=== PATIENT | female | born 1985 | race Caucasian/White ===

== ENCOUNTER 2022-05-17 11:49 | Observation (INO) ==
[2022-05-17] MEDS ORDERED: SODIUM CHLORIDE 0.9% 1,000 ML IV STA (12:46)
[2022-05-17] MEDS ORDERED: metroNIDAZOLE INJ 500 MG/100 ML PREMIX IV ONE (13:39)
[2022-05-17] MEDS ORDERED: LEVOFLOXACIN INJ 500 MG/100 ML PREMIX IV ONE (13:39)
[2022-05-17 13:59] LABS: Basophils # 0.1 10*3/uL (0.0-0.2); Basophils % 0.4 % (0.0-0.8); Eosinophils # 0.2 10*3/uL (0.0-0.87); Eosinophils % 1.8 % (0.00-10.9); Hematocrit 33.6 VOL% (35.7-47.0); Hemoglobin 11.3 GM/DL (12.0-16.0); Immature Granulocytes % 0.4 %; Immature Granulocytes Absolute 0.05 #; Lymphocytes # 2.7 10*3/uL (1.4-4.0); Lymphocytes % 21.1 % (21.3-54.2); Mean Corpuscular HGB Conc 33.6 GM/DL (32-36); Mean Corpuscular Volume 85.3 FL (87-102); Mean Platelet Volume 9.3 FL (9.6-12.0); Monocytes # 1.3 10*3/uL (0.11-0.8); Monocytes % 10.2 % (1.7-12.7); Neutrophils % 66.1 % (38.7-73.9); Platelet Count 281 T/CUMM (130-400); Red Blood Count 3.94 MC/CUMM (3.8-5.5); Red Cell Distribution Width 13.7 % (9.3-17.3); White Blood Count 12.6 T/CUMM (4-12)
[2022-05-17 14:15] LABS: Alanine Aminotransferase 9 U/L (13-56); Albumin 2.1 G/DL (3.4-5.0); Alkaline Phosphatase 94 U/L (45-117); Aspartate Amino Transferase 7 U/L (0-37); Bilirubin,Total < 0.39 MG/DL (0.20-1.00); Blood Urea Nitrogen 7 MG/DL (7-18); Calcium 8.4 MG/DL (8.5-10.1); Carbon Dioxide 23 MMOL/L (21-32); Chloride 110 MMOL/L (98-107); Glucose 185 MG/DL (74-106); Sodium 143 MMOL/L (136-145); Total Protein 6.5 G/DL (6.4-8.2)
[2022-05-17] MEDS ORDERED: BISACODYL 5 MG TABLET PO PRN (14:27)
[2022-05-17] MEDS ORDERED: ACETAMINOPHEN 325 MG TABLET PO PRN (14:27)
[2022-05-17] MEDS: HYDROmorphone 1 MG/1 ML SYRINGE IV PRN ×5 (14:40→21:09)
[2022-05-17] MEDS ORDERED: GLUCAGON 1 MG VIAL IM PRN (14:41)
[2022-05-17] MEDS ORDERED: HydrOXYzine PAMOATE 25 MG CAPSULE PO PRN (14:42)
[2022-05-17] MEDS: ONDANSETRON 4 MG/2 ML VIAL IV PRN ×3 (14:44→20:51)
[2022-05-17] MEDS ORDERED: POTASSIUM CHLORIDE RIDER 20 MEQ/100 ML PREMIX IV PRN (14:44)
[2022-05-17] MEDS ORDERED: DEXTROSE 10% 250 ML BAG IV PRN (14:45)
[2022-05-17] MEDS ORDERED: POTASSIUM CHLORIDE 20 MEQ TABLET PO STA (14:45)
[2022-05-17 14:55] LABS: Mucus,Urine Occasional /LPF (Occasional); RBC,Urine 4 /HPF (0-4); Squamous Epithelial Cell,Urine Few /HPF (0-10); Urine Appearance Clear (Clear); Urine Color Yellow (Yellow); Urine Specific Gravity <= 1.005 (1.001-1.035); Urine pH 5.5 (4.5-8.0)
[2022-05-17 14:56] LABS: Bilirubin,Urine Negative (Negative); Blood, Urine Trace mg/dL (Negative); Glucose,Urine (UA) >=1000 mg/dL (Negative); Ketones,Urine Trace mg/dL (Negative); Nitrite,Urine Negative (Negative); Protein,Urine Negative (Negative); Urine Urobilinogen 0.2 eU/dL (<2.0)
[2022-05-17] MEDS ORDERED: POTASSIUM CHLORIDE RIDER 10 MEQ/100 ML PREMIX IV SCH (15:00)
[2022-05-17 15:12] LABS: Barbiturates Screen,Urine Negative (Negative); Benzodiazepines Screen,Urine Negative (Negative); Cannabinoid Screen,Urine Positive (Negative); Opiate Screen,Urine Positive (Negative); Phencyclidine Screen,Urine Negative (Negative)
[2022-05-17] MEDS ORDERED: SUCCINYLCHOLINE 200 MG/10 ML VIAL ONE (15:31)
[2022-05-17] MEDS ORDERED: ROCURONIUM 50 MG/5 ML VIAL IV ONE (15:32)
[2022-05-17] MEDS ORDERED: LIDOCAINE 2% 5 ML VIAL ONE (15:32)
[2022-05-17] MEDS ORDERED: propofoL 200 MG/20 ML VIAL IV ONE (15:32)
[2022-05-17] MEDS ORDERED: fentaNYL 100 MCG/2 ML VIAL ONE (15:33)
[2022-05-17] MEDS ORDERED: PHENYLEPHRINE 1 MG/10 ML SYRINGE IV ONE (15:57)
[2022-05-17] MEDS ORDERED: DESFLURANE 1 UNIT/15 MINUTE INH ONE (16:03)
[2022-05-17] MEDS ORDERED: MEPERIDINE 25 MG/1 ML VIAL IV PRN (16:09)
[2022-05-17] MEDS ORDERED: ONDANSETRON 4 MG/2 ML VIAL IV PRN (16:09)
[2022-05-17] MEDS ORDERED: diphenhydrAMINE 50 MG/1 ML VIAL IV PRN (16:09)
[2022-05-17] MEDS ORDERED: SUGAMMADEX 200 MG/2 ML VIAL IV ONE (16:17)
[2022-05-17] MEDS ORDERED: PROMETHAZINE 25 MG/1 ML VIAL ONE (16:31)
[2022-05-17] MEDS ORDERED: TISSUE ADHESIVE 1 EACH APPLICATOR TOP ONE (16:38)
[2022-05-17] MEDS ORDERED: ALBUTEROL 2.5 MG/3 ML NEB RESP TX PRN (16:48)
[2022-05-17] MEDS ORDERED: POTASSIUM CHLORIDE RIDER 20 MEQ/200 ML PREMIX IV ONE (17:17)
[2022-05-17] MEDS: LACTATED RINGERS 1,000 ML IV SCH (17:20)
[2022-05-17] MEDS: POTASSIUM CHLORIDE RIDER 10 MEQ/100 ML PREMIX IV SCH ×5 (17:21→23:20)
[2022-05-17] MEDS ORDERED: PROMETHAZINE INJ 25 MG in SODIUM CHLORIDE 0.9% 50 ML IV PRN (17:26)
[2022-05-17] MEDS ORDERED: INSULIN GLARGINE 100 UNIT/ML SUBCUT SCH (21:00)
[2022-05-17] MEDS: INSULIN LISPRO 100 UNIT/ML SUBCUT SCH (21:58)
[2022-05-17] MEDS: PROMETHAZINE INJ 25 MG in SODIUM CHLORIDE 0.9% 50 ML IV PRN (22:52)
[2022-05-18] MEDS: tiZANidine 4 MG TABLET PO SCH ×2 (00:01→08:36)
[2022-05-18] MEDS: INSULIN LISPRO 100 UNIT/ML SUBCUT SCH ×4 (01:28→12:09)
[2022-05-18] MEDS: HYDROmorphone 1 MG/1 ML SYRINGE IV PRN ×4 (02:36→13:06)
[2022-05-18] MEDS: ONDANSETRON 4 MG/2 ML VIAL IV PRN ×3 (02:37→13:05)
[2022-05-18] MEDS: LACTATED RINGERS 1,000 ML IV SCH (02:43)
[2022-05-18] MEDS: POTASSIUM CHLORIDE RIDER 10 MEQ/100 ML PREMIX IV SCH (02:44)
[2022-05-18 06:16] LABS: Basophils # 0.1 10*3/uL (0.0-0.2); Basophils % 0.5 % (0.0-0.8); Eosinophils # 0.3 10*3/uL (0.0-0.87); Eosinophils % 2.3 % (0.00-10.9); Hematocrit 30.7 VOL% (35.7-47.0); Hemoglobin 9.9 GM/DL (12.0-16.0); Immature Granulocytes % 0.5 %; Immature Granulocytes Absolute 0.07 #; Lymphocytes # 3.1 10*3/uL (1.4-4.0); Lymphocytes % 24.2 % (21.3-54.2); Mean Corpuscular HGB Conc 32.2 GM/DL (32-36); Mean Corpuscular Volume 88.2 FL (87-102); Monocytes # 1.4 10*3/uL (0.11-0.8); Monocytes % 10.7 % (1.7-12.7); Neutrophils % 61.8 % (38.7-73.9); Platelet Count 268 T/CUMM (130-400); Red Blood Count 3.48 MC/CUMM (3.8-5.5); Red Cell Distribution Width 13.9 % (9.3-17.3); White Blood Count 12.8 T/CUMM (4-12)
[2022-05-18] MEDS: PROMETHAZINE INJ 25 MG in SODIUM CHLORIDE 0.9% 50 ML IV PRN (06:25)
[2022-05-18 06:29] LABS: Calcium 8.7 MG/DL (8.5-10.1); Calcium 8.8 MG/DL (8.5-10.1); Osmolality,Calculated 282.3 MOS/KG (273-304); Osmolality,Calculated 284.3 MOS/KG (273-304); Potassium 3.7 MMOL/L (3.5-5.1)
[2022-05-18] MEDS ORDERED: MAGNESIUM SULF INJ 3 GM in SODIUM CHLORIDE 0.9% 100 ML IV ONE (07:22)
[2022-05-18] MEDS ORDERED: MAGNESIUM SULF RIDER 2 GM/50 ML PREMIX IV ONE (07:30)
[2022-05-18] MEDS ORDERED: PANTOPRAZOLE 40 MG TABLET PO SCH (09:00)
[2022-05-18] MEDS ORDERED: SERTRALINE 50 MG TABLET PO SCH (09:00)
[2022-05-18] MEDS ORDERED: LIDOCAINE 1% 5 ML VIAL MISC INJ ONE (09:30)
[2022-05-18 11:37] VITALS: BP 116/72
== END 2022-05-18 16:53 | disposition home or self-care (01) ==
LOC: EDBD → EDUNIT# → N.EDINP 11:49 → N.ED 11:49 → N.3E 16:44
PROVIDERS: ADMIT Surgery; ATTEND Surgery